=== PATIENT | male | born 1990 | race Caucasian/White ===

== ENCOUNTER 2021-08-09 10:34 | Inpatient (IN) | payer OTHER ==
[~2021-08-09] VITALS: Ht 177.8 cm; Wt 65.3 kg
--- NOTE | 2021-08-09 10:50 | NUR ---
"Chest Pain sharp/constant worse when breathing going Right arm". The patient rates pains 12/06 Addendum: 08/09/21 at 1114 by LSARGSYAN Denies SOB. Respiration regular and unlabored. Attached to the monitor.
--- NOTE | 2021-08-09 11:12 | NUR ---
STARTED LINE, BLOOD SPECIMEN COLLECTED AND SENT TO THE LAB. THE LINE IS SALINE LOCKED.
[2021-08-09 11:33] LABS: BASOPHILS % (AUTO) 0.3 % (0.0-2.0); HEMATOCRIT 46 % (39-51); HEMOGLOBIN 15.5 g/dL (13.5-17.5); LYMPHOCYTES # (AUTO) 1.3 K/uL (0.8-4.8); LYMPHOCYTES % (AUTO) 19.5 % (20.0-44.0); MEAN CORPUSCULAR HGB CONC 34 g/dl (31.0-36.0); MEAN CORPUSCULAR VOLUME 93 fL (80-96); MONOCYTES # (AUTO) 0.4 K/uL (0.1-1.30); MONOCYTES % (AUTO) 6.1 % (2.0-12.0); NEUTROPHILS % (AUTO) 73.1 % (43.0-81.0); PLATELET COUNT (AUTO) 215 K/uL (150-450); RED BLOOD CELL COUNT(AUTO) 4.91 MIL/uL (4.5-6.0); WHITE BLOOD COUNT (AUTO) 6.9 K/uL (4.3-11.0)
[2021-08-09 11:44] LABS: CALCIUM, SERUM 9.1 mg/dL (8.5-10.1); CARBON DIOXIDE 29 mmol/L (21-32); CHLORIDE 103 mmol/L (98-107); GLUCOSE 95 mg/dL (74-106); POTASSIUM 4.4 mmol/L (3.5-5.1); SODIUM SERUM 139 mmol/L (136-145); UREA NITROGEN, BLOOD 14 mg/dL (7-18)
--- NOTE | 2021-08-09 12:04 | NUR ---
COVID SWAB DONE AND SENT TO THE LAB
[2021-08-09] MEDS ORDERED: KETAMINE HCL (500MG/10ML) 50 MG/ML VIAL ONE (12:59)
[2021-08-09] MEDS ORDERED: MIDAZOLAM HCL 2 MG/2ML VIAL ONE (12:59)
[2021-08-09] MEDS ORDERED: MIDAZOLAM HCL 2 MG/2ML VIAL IV ONE (13:00)
[2021-08-09] MEDS ORDERED: KETAMINE HCL (500MG/10ML) 50 MG/ML VIAL IV ONE (13:00)
--- NOTE | 2021-08-09 13:40 | NUR ---
AND WATSON KERR AT BEDSIDE.TIME OUT INITIATED.
--- NOTE | 2021-08-09 13:42 | NUR ---
VERSED 1MG IVP GIVEN.
[2021-08-09] MEDS ORDERED: LIDOCAINE HCL/MPF 1% 30 ML VIAL IJ ONE (13:44)
--- NOTE | 2021-08-09 13:50 | NUR ---
KETAMINE 60MG IVP.
[2021-08-09] MEDS ORDERED: ONDANSETRON HCL/PF 4 MG/2 ML VIAL ONE (14:23)
[2021-08-09] MEDS ORDERED: MORPHINE SULFATE INJ 4 MG/ML DISP.SYRIN ONE ×2 (14:24→16:12)
--- NOTE | 2021-08-09 14:36 | NUR ---
MORPHINE 4 MG IV PUSH ONCE AND ZOFRAN 4 MG IV PUSH ONCE PER DR FLORES. NOTED AND CARRIED OUT.
[2021-08-09] MEDS ORDERED: MORPHINE SULFATE INJ 2 MG/ML DISP.SYRIN IV ONE ×2 (15:00→16:00)
[2021-08-09] MEDS ORDERED: ONDANSETRON HCL/PF 4 MG/2 ML VIAL IV ONE (15:00)
--- NOTE | 2021-08-09 15:53 | NUR ---
ROOM 114-1
--- NOTE | 2021-08-09 17:04 | NUR ---
INTEGRATION CONSULTANT NOTES PT BROUGHT FROM ER WITH A R CHEST TUBE CONNECTED TO SUCTION. DRESSIGN IN TACT. PT HAS A LEFT AC 20 G SALINE LOCKED, PATENT, FLUSHED, WITH DRESSING IN TACT. BELONGINGS COLLECTED AND DOCUMENT IN THE CHART. PT ORIENTED TO ROOM, SAFETY MEASURES IN PLACE WITH BED IN LOWEST LOCKED POSITION, SIDE RAILS UP X2, AND CALL LIGHT WITHIN REACH.
--- NOTE | 2021-08-09 17:05 | NUR ---
THE PATIENT IS TRANSFERED TO [facility] IN STABLE CONDITION PER ACLS POLICY.
--- NOTE | 2021-08-09 18:48 | NUR ---
ORDER TAKER NOTES PT RESTING IN SEMI-FOWLERS POSITION ON 2L NC WITH NO S/SX OF RESPIRATORY DISTRESS. PT HAS A RIGHT CHEST TUBE CONNECTED TO WALL SUCTION WITH MINIMAL OUTPUT, 5ML. PT EATING DINNER WITH FAMILY AT BEDSIDE. PT HAS A LEFT AC SL FLUSHED, PATENT AND INTACT. SAFETY MEASURES IN PLACE WITH BED IN LOWEST LOCKED POSITION, CALL LIGHT WITHIN REACH AND ALL NEEDS ATTENDED AT THIS TIME.
[2021-08-09] MEDS ORDERED: ONDANSETRON HCL/PF 4 MG/2 ML VIAL IV PRN (19:30)
[2021-08-09] MEDS: HYDROMORPHONE 1 MG/1 ML DISP.SYRIN IV PRN (19:35)
[2021-08-09 20:00] VITALS: BP 153/59
[2021-08-09] MEDS ORDERED: ACETAMINOPHEN 325 MG TABLET PO PRN (20:00)
[2021-08-09] MEDS ORDERED: Z GUARD REMEDY 2 OZ OINT TP PRN (20:00)
--- NOTE | 2021-08-09 20:00 | NUR ---
DIRECTOR PARK NOTES RECEIVED PTS RESTING IN BED A/OX4 ON SEMI-FOWLERS POSITION ,TELE READING SB -46 ON 2L NC SATING 100% V/S STABLE AFEBRILE . WITH NO S/SX OF RESPIRATORY DISTRESS. PT HAS A RIGHT CHEST TUBE CONNECTED TO WALL SUCTION WITH MINIMAL OUTPUT, FAMILY AT BEDSIDE. PT HAS A LEFT AC g#20 SL FLUSHED, PATENT AND INTACT. SAFETY MEASURES IN PLACE WITH BED IN LOWEST LOCKED POSITION, CALL LIGHT WITHIN REACH AND ALL NEEDS ATTENDED AT THIS TIME.SEEN BY DR KERR AT BEDSIDE . WITH ORDER MADE AND CARRIED OUT, PAIN MGT GIVEN ORDERED , WILL CONTINUE TO MONITOR PTS.
[2021-08-09 20:13] LABS: THYROID STIMULATING HORMONE 1.086 uIU/mL (0.358-3.74)
[2021-08-09] MEDS: KETOROLAC TROMETHAMINE INJ 30 MG/ML VIAL IV PRN (20:59)
[2021-08-10] VITALS: BP 106/70
[2021-08-10] MEDS: HYDROMORPHONE 1 MG/1 ML DISP.SYRIN IV PRN ×3 (00:25→19:40)
[2021-08-10] MEDS: ZOLPIDEM TARTRATE 5 MG TABLET PO PRN (00:26)
[2021-08-10 04:00] VITALS: BP 109/81
--- NOTE | 2021-08-10 06:37 | NUR ---
HOUSE RN NOTES PT RESTING IN BED SEMI-FOWLERS POSITION ON 2L NC WITH NO S/SX OF RESPIRATORY DISTRESS. REMAIN ON RIGHT CHEST TUBE CONNECTED TO WALL SUCTION WITH MINIMAL OUTPUT, 5ML. WILL ENDORSE TO RN DAY SHIFT FOR CONTINUITY OF CARE.
--- NOTE | 2021-08-10 07:30 | NUR ---
FARE COLLECTOR AM NOTES RECEIVED PTS RESTING IN BED A/OX4 ON SEMI-FOWLERS POSITION ,TELE READING SR-HR 67, ON 2L NC SATING 100% AFEBRILE . WITH NO S/SX OF RESPIRATORY DISTRESS. PT HAS A RIGHT CHEST TUBE CONNECTED TO WALL SUCTION WITH 5 ML OUTPUT, DENIES PAIN AT THIS TIME. PT HAS A LEFT AC g#20 SL FLUSHES WELL, SITE CLEAR. SAFETY MEASURES IN PLACE WITH BED IN LOWEST LOCKED POSITION, CALL LIGHT WITHIN REACH, ALL NEEDS ANTICIPATED. BED LOW LOCKED, SR UP X 2, CALL LIGHT WITHIN REACH. WILL CONTINUE TO MONITOR.
[2021-08-10 08:00] VITALS: BP 109/67
[2021-08-10] MEDS: PANTOPRAZOLE 40 MG TABLET.DR PO SCH (08:09)
--- NOTE | 2021-08-10 09:30 | NUR ---
RN NOTES DUE MEDS GIVEN
[2021-08-10 12:00] VITALS: BP 124/79
--- NOTE | 2021-08-10 12:18 | NUR ---
SS Consult: SS consult for Cannabis use. Pt. Is a 30-year-old White male. Pt. demonstrates adequate insight to the reason for hospitalization. Per pt., he was brought to hospital by self-due to chest pain. Pt. was oriented x3, alert, and cooperative. During interview, pt. was capable of following directions, made appropriate eye-contact, and appeared well-groomed [in hospital gown]. SW explored pt.s Hx of mental health and substance abuse. Pt. reported no Hx of mental health, SI/HI, denied AH/VH, paranoia or delusions. SW asked if pt. has a history of marijuana, pt. stated: yes. Per pt., marijuana is not the problem and he does not need help. KASSIE explored pt.s living situation. Per pt., he lives with his parents [[address] [place] [address], Pt.s number: [phone], Father: Sourav Ojeda: [phone]]. Per pt., he reports having adequate support at home. KASSIE explored pt.s financial status. Per pt., he is currently working and is financially stable. Plan: SW provided available substance abuse resources and pt. denied interest at this time. Once discharge, per pt., he will return to home [[address] [place] [address]]. Resources Provided (but pt. denied): Substance Abuse resources provided included: [facility] Substance Abuse Self-Helpline ([facility]) ; [facility] [address] [facility] [place] [id number] ; [facility] [address] [facility] [address] ; [facility] [address] [facility] [address] ; [facility] [address] [facility] [address] ; [facility] [address] [facility] [address] ; [facility] [address] [facility] [address] ; [facility] Substance Abuse Helpline(SAS)-[facility] ; [facility] ; [facility]; [facility] [place]; [facility] [place]; [facility] [place]; [facility] [place]; [facility] [place]; [facility], [facility]. Elvira [place]; Alcoholics Anonymous -[facility]; [facility] ; Marijuana Anonymous [facility]; Narcotics Anonymous www.na.org;
[2021-08-10] MEDS: KETOROLAC TROMETHAMINE INJ 30 MG/ML VIAL IV PRN (15:40)
[2021-08-10 16:00] VITALS: BP 113/66
--- NOTE | 2021-08-10 18:29 | NUR ---
RN NOTES ALL NEEDS MET. PATIENT RESTING. CHEST TUBE IN PLACE. O OUTPUT. NO OTHER SIGNIFICANT CHANGES DURING THIS SHIFT. WILL ENDORSE TO NEXT SHIFT FOR CRAIG.
[2021-08-10 20:00] VITALS: BP 108/50
[2021-08-11] VITALS: BP 112/55
[2021-08-11 04:00] VITALS: BP 111/68
[2021-08-11] MEDS: HYDROMORPHONE 1 MG/1 ML DISP.SYRIN IV PRN ×3 (04:18→19:48)
--- NOTE | 2021-08-11 05:22 | NUR ---
RN notes Resting comfortably in bed watching TV with no distress noted. Breathing even and unlabored. On 2lpm O2 via nasal cannula tolerating well. Complaininf of right chest painm, hydromorphone administered x 2. Vital signs wnl. No significant change of condition. Kept clean and dry. Will endorse to next shift for community of care.
--- NOTE | 2021-08-11 07:30 | NUR ---
RN MORNING NOTE PT AWAKE IN BED AND IS ORIENTATED A/OX4 AND ABLE TO VERBALIZE NEEDS. PT IS ON 2L O2 VIA NC WITH O2 SAT OF 100%, WITH RIGHT CHEST TUBE SEALED SUCTION INTACT, NO SIGNS OF UNLABORED BREATHING OR DISTRESS AT THIS TIME, ON TELE MONITOR SINUS CHRIS, PT IS CONTINENT ON BOWEL AND BLADDER AND HAS BATHROOM PRIVILEGES, PT HAS RFA 18G ACCESS, PATENT AND FLUSHING WELL, ON REGULAR DIET, ISOLATION PRECAUTIONS OBSERVED, BED IS LOCKED AND IN LOWEST POSITION X2 GUARDRAILS, CALL LIGHT WITHIN REACH, WILL CONTINUE TO MONITOR THIS SHIFT.
[2021-08-11 08:00] VITALS: BP 112/69
[2021-08-11] MEDS: PANTOPRAZOLE 40 MG TABLET.DR PO SCH (09:08)
[2021-08-11 12:00] VITALS: BP 110/69
[2021-08-11 16:00] VITALS: BP 120/74
--- NOTE | 2021-08-11 18:53 | NUR ---
RN CLOSING NOTE PT IS SITTING UP IN BED AND IS ORIENTATED A/OX4 AND ABLE TO VERBALIZE NEEDS. PT IS ON 2L O2 VIA NC WITH O2 SAT OF 100%, WITH RIGHT CHEST TUBE SEALED SUCTION INTACT AND IN PLACE, CXR COMPLETED AT 1800 TODAY PER MD ORDER, NO SIGNS OF UNLABORED BREATHING OR DISTRESS AT THIS TIME, ON TELE MONITOR SINUS CHRIS, PT IS CONTINENT ON BOWEL AND BLADDER AND HAS BATHROOM PRIVILEGES, PT HAS RFA 18G ACCESS, PATENT AND FLUSHING WELL, CONTINUE SUPPLEMENT O2 AND DVT PPX, ON REGULAR DIET, ISOLATION PRECAUTIONS OBSERVED, BED IS LOCKED AND IN LOWEST POSITION X2 GUARDRAILS, CALL LIGHT WITHIN REACH, WILL CONTINUE TO MONITOR THIS SHIFT.
--- NOTE | 2021-08-11 19:08 | NUR ---
RN NOTE PER JUSTO USHA LUNGS FULLY EXPANDED, WILL CLAMP CHEST TUBE TOMORROW AM.
[2021-08-11 20:00] VITALS: BP 123/63
--- NOTE | 2021-08-11 20:00 | NUR ---
MS RN NOTES PTS ON 2LITERS OF O2 VIA NC SATING 100%
--- NOTE | 2021-08-11 20:00 | NUR ---
FARMWORKER NOTES RECEIVED PTS RESTING IN BED A/OX4 ON SEMI-FOWLERS POSITION , V/S STABLE AFEBRILE . WITH NO S/S OF RESPIRATORY DISTRESS,NO SOB NOTED. PT HAS A RIGHT CHEST TUBE CONNECTED TO WALL SUCTION WITH MINIMAL OUTPUT, FAMILY AT BEDSIDE. PT HAS A LEFT AC g#20 SL FLUSHED, PATENT AND INTACT. SAFETY MEASURES IN PLACE WITH BED IN LOWEST LOCKED POSITION, CALL LIGHT WITHIN REACH AND ALL NEEDS ATTENDED AT THIS TIME , WILL CONTINUE TO MONITOR PTS.PAIN MEDICATION GIVEN ORDERED.
[2021-08-12 04:00] VITALS: BP 124/76
--- NOTE | 2021-08-12 06:18 | NUR ---
PROPAGATOR NOTES PT RESTING IN BED SEMI-FOWLERS POSITION ON 2L NC WITH NO S/SX OF RESPIRATORY DISTRESS. REMAIN ON RIGHT CHEST TUBE CONNECTED TO WALL SUCTION WITH MINIMAL OUTPUT 5ML . WILL ENDORSE TO RN DAY SHIFT FOR CONTINUITY OF CARE.
--- NOTE | 2021-08-12 07:32 | NUR ---
OPENING NOTE RECEIVED PT AWAKE/ALERT IN BED RESTING IN SEMI-FOWLERS POSITION WITH RIGHT CHEST TUBE HOOKED TO SUCTION, AND OUTPUT OF 5ML ON PREVIOUS SHIFT. PT HAS 2L NC WITH HUMIDIFICATION WITH NO S/SX OF RESPIRATORY DISTRESS OR PAIN NOTED AT THIS TIME. ROOM IS KEPT CLEAN WITH CLUTTER REMOVED. SAFTEY MEASURES IN PLACE WITH BED IN LOWEST LOCKED POSITION, CALL LIGHT WITHIN REACH AND ALL NEEDS ATTENDED AT THIS TIME.
[2021-08-12] MEDS: PANTOPRAZOLE 40 MG TABLET.DR PO SCH (07:48)
[2021-08-12 08:00] VITALS: BP 117/65
--- NOTE | 2021-08-12 12:30 | NUR ---
ELECTRIC METER TESTER NOTES CHEST TUBE CLAMPED PER MANUFACTURING ANALYST ORDER. REMOVED PT NC WITH O2 SATURATION OF 98% STANDING AT BEDSIDE.
--- NOTE | 2021-08-12 14:30 | NUR ---
SLATE ROOFER NOTE PT AMBULATING IN HALLWAY WITH NO S/SX OF SOB OR COMPLAINTS OF PAIN.
[2021-08-12 16:00] VITALS: BP 120/69
--- NOTE | 2021-08-12 18:58 | NUR ---
CLINICAL DATA MANAGER CLOSING NOTE PT RESTING COMFORTABLY IN BED. FAMILY BROUGHT IN FOOD AND ARE AT THE BEDSIDE. PT KEPT COMFORTABLE WITH ALL NEEDS ATTENDED. NO S/SX OF SOB OR COMPLAINTS OF PAIN AT THIS TIME. SAFETY MEASURES IN PLACE WITH BED IN LOWEST LOCKED POSITION, SIDE RAILS UP X2 AND CALL LIGHT WITHIN REACH.
--- NOTE | 2021-08-12 19:44 | NUR ---
in BED FEMALE VISITOR AT THE BEDSIDE PATIENT SITTING IN HIGH FOWLERS POSITION NO SOB NOTED OR MENTIONED CT CLAMPED PATIOENT SKIN COLOR WARM AND DRY PATIENT TALKING AND SMILING DENIES PAIN AT THIS TIME
[2021-08-12] MEDS: ZOLPIDEM TARTRATE 5 MG TABLET PO PRN (21:21)
--- NOTE | 2021-08-13 03:46 | NUR ---
closing notes: ALERT AND ORIENTATED THRU THE NIGHT. aMBIEN GIVEN FOR INSOMNIA AND EFFECTIVE BED ALARM CAP INSPECTOR LIGHT REVIEVED WITH PT PRIOE GOING TO SLLEP ROOM AIR SAT 96 -98% CHEST TUBE CLAMPED THIS 12 HOURS NO SOB EPISODES
--- NOTE | 2021-08-13 07:19 | NUR ---
RN OPENING NOTES; RECEIVED PT IN SUPINE POS. PT INDEPENDENT, A/OX4. ABLE TO MAKE NEEDS KNOW. NO SOB, NO DISTRESS, NO C/O PAIN AT THIS TIME. SAFETY MEASURES RENDERED, BED IN LOWEST POS. LOCKED WITH CALL LIGHT WITHIN REACH. WILL CONTINUE TO MONITOR.
[2021-08-13 08:00] VITALS: BP 113/80
[2021-08-13] MEDS: PANTOPRAZOLE 40 MG TABLET.DR PO SCH (08:00)
[2021-08-13] MEDS: HYDROMORPHONE 1 MG/1 ML DISP.SYRIN IV PRN (13:50)
--- NOTE | 2021-08-13 16:09 | NUR ---
RN D/C NOTES PT D/C TO HOME. A/OX4, AMBULATORY. ALL PAPERWORK SIGNED, ALL BELONGINGS TAKEN. D/C INSTRUCTIONS GIVEN. PT STATES UNDERSTANDING. PT ESCORTED TO LOBBY BY RN, MOTHER AND GF. PT LEFT VIA PRIVATE VEHICLE IN STABLE CONDITION.
== END 2021-08-13 15:27 | disposition home or self-care (01) | DRG 201 ==
LOC: ER 10:40 → TELE1 16:00 → MEDSG1 08-11 11:08
PROVIDERS: ADMIT Nurse Practitioner Acute Care; ATTEND Nurse Practitioner Acute Care
PROC: 0W9930Z Drainage of Right Pleural Cavity with Drainage Device, Percutaneous Approach (ICD-10-PCS; principal; 2021-08-09)
DX: J93.9 Pneumothorax, unspecified (principal); F12.90 Cannabis use, unspecified, uncomplicated; Z20.822 Contact with and (suspected) exposure to COVID-19; Z98.890 Other specified postprocedural states
CPT/HCPCS: 36415; 71045-TC; 71250-TC; 80048-TC; 80061-TC; 84443-TC; 84484-TC; 85025-TC; 87081-TC; C9803; G0378; G0500; J1170; J1885; J2250; J2270; J2405; J3490; J7030